=== PATIENT | male | born 1945 | race Caucasian/White ===

== ENCOUNTER 2024-07-27 23:42 | Inpatient (IN) | payer OTHER, MEDICAID ==
[~2024-07-27] VITALS: Ht 188 cm; Wt 92.5 kg
[2024-07-28] VITALS (10 sets, daily range): BP systolic 94–144; BP diastolic 51–87; PULSE 65–106; RESP 18–25; TEMP 98.1; O2SAT 91–100
[2024-07-28 00:19] LABS: Base Excess 3.7 mmol/L (-2.0-3.0)
[2024-07-28] MEDS: SODIUM CHLORIDE 0.9% 1,000 ML IV ONE ×2 (00:30→01:26)
[2024-07-28] MEDS: CEFEPIME 2GM/50ML NS 50 ML IV ONE (00:30)
[2024-07-28] MEDS: ONDANSETRON HCL 4 MG/2 ML VIAL IV ONE (00:35)
[2024-07-28 00:58] LABS: Basophils # (auto) 0 10 ^3/uL (0-0.2); Eosinophils # (auto) 0.1 10 ^3/uL (0-0.8); Eosinophils % (auto) 0.8 % (0.0-7.0); Hematocrit 37.8 % (41.0-53.0); Hemoglobin 12.8 g/dL (13.5-17.5); Lymphocytes # (auto) 0.4 10 ^3/uL (0.4-5.4); Mean Corpuscular Hemoglobin 34.6 pg (28.0-32.0); Mean Corpuscular Volume 101.7 fL (80.0-100.0); Monocytes # (auto) 0.5 10 ^3/uL (0-1.3); Monocytes % (auto) 2.8 % (0.0-12.0); Neutrophils # (auto) 17.2 10 ^3/uL (1.6-8.6); Neutrophils % (auto) 94.4 % (37.0-80.0); Platelet Count (auto) 211 10^3/uL (140-450); Red Blood Cells 3.71 10^6/uL (4.5-5.90); White Blood Cell 18.2 10^3/uL (4.4-10.8)
[2024-07-28 01:10] LABS: Alanine Aminotransferase 12 U/L (7-40); Albumin 4.1 g/dL (3.2-4.8); Alkaline Phosphatase 82 U/L (46-116); Anion Gap 3 (5-15); Aspartate Aminotransferase 19 U/L (13-40); BUN/Creatinine Ratio 18.4 (10.0-20.0); Bilirubin, Total 0.8 mg/dL (0.2-1.0); Blood Urea Nitrogen 23 mg/dL (9-23); Calcium 9.5 mg/dL (8.7-10.4); Carbon Dioxide 31 mmol/L (20-31); Chloride 104 mmol/L (98-107); Glucose 126 mg/dL (74-106); Potassium 3.9 mmol/L (3.5-5.1); Sodium 138 mmol/L (136-145); Total Protein 7.3 g/dL (5.7-8.2)
[2024-07-28 04:21] LABS: Urine Clarity Clear (Clear); Urine Color LIGHT YELLOW (Yellow); Urine Protein, UAD Negative (Negative); Urine Specific Gravity 1.012 (1.001-1.035); Urine Urobilinogen Normal (Negative); Urine pH 6.5 (5.0-9.0)
[2024-07-28 04:22] LABS: Urine Blood Trace /uL (Negative)
[2024-07-28 05:17] LABS: Urine Bacteria Rare /hpf (None Seen); Urine Mucus Rare (None Seen); Urine WBC 0-3 /hpf (0 - 3)
[2024-07-28 06:52] LABS: Base Excess 1.9 mmol/L (-2.0-3.0)
[2024-07-28] MEDS ORDERED: ACETAMINOPHEN 325 MG TAB PO PRN (07:00)
[2024-07-28] MEDS ORDERED: DOCUSATE SOD 100 MG CAP PO PRN (07:00)
[2024-07-28] MEDS ORDERED: ONDANSETRON HCL 4 MG/2 ML VIAL IV PRN (07:00)
[2024-07-28] MEDS ORDERED: HYDROcodone-ACET 5/325MG TAB PO PRN (07:00)
[2024-07-28] MEDS: SODIUM CHLORIDE 0.9% 1,000 ML IV SCH (07:24)
[2024-07-28] MEDS: methylPREDNISolone SOD SUCC 125 MG/2 ML VL IV ONE (07:34)
[2024-07-28] MEDS ORDERED: MORPHINE SULFATE INJ 2 MG/ml SYRG IV PRN (07:45)
[2024-07-28] MEDS ORDERED: NITROGLYCERIN 0.4 MG SL TAB SL PRN (07:45)
[2024-07-28] MEDS ORDERED: VANCOMYCIN PER PHARMACY 0 MG IV SCH (08:00)
[2024-07-28] MEDS: FAMOTIDINE (10MG/ML) 2ML VL IV SCH (08:10)
[2024-07-28] MEDS: VANCOMYCIN 1GM/200ML PREMIX 200 ML IV SCH (08:22)
[2024-07-28 08:44] LABS: Alanine Aminotransferase 13 U/L (7-40); Albumin 3.8 g/dL (3.2-4.8); Alkaline Phosphatase 68 U/L (46-116); Anion Gap 4 (5-15); Aspartate Aminotransferase 17 U/L (13-40); BUN/Creatinine Ratio 19.4 (10.0-20.0); Blood Urea Nitrogen 25 mg/dL (9-23); Calcium 9.3 mg/dL (8.7-10.4); Carbon Dioxide 31 mmol/L (20-31); Chloride 104 mmol/L (98-107); Glucose 126 mg/dL (74-106); Potassium 5.2 mmol/L (3.5-5.1); Sodium 139 mmol/L (136-145)
[2024-07-28 08:45] LABS: Total Protein 6.8 g/dL (5.7-8.2)
[2024-07-28 08:59] LABS: Basophils # (auto) 0 10 ^3/uL (0-0.2); Basophils % (auto) 0.1 % (0.0-2.0); Eosinophils # (auto) 0 10 ^3/uL (0-0.8); Eosinophils % (auto) 0.2 % (0.0-7.0); Hematocrit 35.7 % (41.0-53.0); Hemoglobin 11.7 g/dL (13.5-17.5); Lymphocytes # (auto) 0.6 10 ^3/uL (0.4-5.4); Lymphocytes % (auto) 2.9 % (10.0-50.0); Mean Corpuscular Hemoglobin 33.3 pg (28.0-32.0); Mean Corpuscular Hgb Conc. 32.7 g/dL (32.0-36.0); Mean Corpuscular Volume 101.9 fL (80.0-100.0); Monocytes # (auto) 1.1 10 ^3/uL (0-1.3); Neutrophils # (auto) 20.4 10 ^3/uL (1.6-8.6); Neutrophils % (auto) 91.8 % (37.0-80.0); Platelet Count (auto) 204 10^3/uL (140-450); Red Cell Distribution Width 17.6 % (11.8-14.3); White Blood Cell 22.2 10^3/uL (4.4-10.8)
[2024-07-28] MEDS: ASPirin 81 mg TAB PO SCH (10:00)
[2024-07-28] MEDS ORDERED: FAMOTIDINE (10MG/ML) 2ML VL IV SCH (10:00)
[2024-07-28] MEDS: cefTRIAXone 1GM/50ML D5W 50 ML IV SCH (10:24)
[2024-07-28] MEDS: methylPREDNISolone SOD SUCC 40 MG/ML VL IV SCH (14:17)
[2024-07-28] MEDS: VANCOMYCIN 750mg/150ml 150 ML IV SCH (21:25)
[2024-07-28] MEDS: ATORVASTATIN 20 MG TAB PO SCH (21:42)
[2024-07-29] VITALS (22 sets, daily range): BP systolic 100–144; BP diastolic 61–88; PULSE 73–101; RESP 16–20; TEMP 96.1–98.1; O2SAT 80–99
[2024-07-29] MEDS: ALBUTEROL SULF 2.5 MG/0.5ML(0.5%) NEB SOLN NEB SCH (00:19)
[2024-07-29] MEDS: IPRATROPIUM BROM 0.5 MG/2.5ML INH SOL NEB SCH (00:19)
[2024-07-29] MEDS: LEVOTHYROXINE SODIUM 50 MCG TAB PO SCH (06:00)
[2024-07-29 07:19] LABS: Basophils # (auto) 0 10 ^3/uL (0-0.2); Basophils % (auto) 0.1 % (0.0-2.0); Eosinophils # (auto) 0 10 ^3/uL (0-0.8); Hematocrit 35.8 % (41.0-53.0); Hemoglobin 11.9 g/dL (13.5-17.5); Lymphocytes # (auto) 0.3 10 ^3/uL (0.4-5.4); Lymphocytes % (auto) 1.8 % (10.0-50.0); Mean Corpuscular Hemoglobin 33.8 pg (28.0-32.0); Mean Corpuscular Hgb Conc. 33.3 g/dL (32.0-36.0); Mean Corpuscular Volume 101.4 fL (80.0-100.0); Monocytes # (auto) 0.3 10 ^3/uL (0-1.3); Monocytes % (auto) 2.1 % (0.0-12.0); Neutrophils # (auto) 15.3 10 ^3/uL (1.6-8.6); Nucleated Red Blood Cells % 0.1 %; Platelet Count (auto) 191 10^3/uL (140-450); Red Blood Cells 3.53 10^6/uL (4.5-5.90); Red Cell Distribution Width 17.3 % (11.8-14.3); White Blood Cell 15.9 10^3/uL (4.4-10.8)
[2024-07-29 07:39] LABS: Alanine Aminotransferase 14 U/L (7-40); Albumin 3.8 g/dL (3.2-4.8); Alkaline Phosphatase 63 U/L (46-116); Anion Gap 5 (5-15); Aspartate Aminotransferase 44 U/L (13-40); BUN/Creatinine Ratio 23.6 (10.0-20.0); Bilirubin, Total 0.6 mg/dL (0.2-1.0); Blood Urea Nitrogen 26 mg/dL (9-23); Calcium 9.5 mg/dL (8.7-10.4); Carbon Dioxide 28 mmol/L (20-31); Chloride 105 mmol/L (98-107); Glucose 137 mg/dL (74-106); Potassium 4.1 mmol/L (3.5-5.1); Sodium 138 mmol/L (136-145)
[2024-07-29 07:40] LABS: Total Protein 6.9 g/dL (5.7-8.2)
[2024-07-29] MEDS ORDERED: GABA-1308 GT (10:19)
[2024-07-29] MEDS ORDERED: MIDO5TAB22 GT (10:19)
[2024-07-29] MEDS ORDERED: POTA-220 GT (10:19)
[2024-07-29] MEDS ORDERED: FLUD0.1T2 GT (10:19)
[2024-07-29] MEDS ORDERED: LORA-622 PO (10:19)
[2024-07-29] MEDS ORDERED: ACET-1341 GT (10:19)
[2024-07-29] MEDS: GABAPENTIN 100 MG CAP GT SCH (22:46)
[2024-07-30] VITALS (14 sets, daily range): BP systolic 99–132; BP diastolic 58–86; PULSE 68–80; RESP 17–20; TEMP 97.5–98.7; O2SAT 92–98
[2024-07-30 07:52] LABS: Eosinophils # (auto) 0 10 ^3/uL (0-0.8); Lymphocytes # (auto) 0.3 10 ^3/uL (0.4-5.4); Mean Corpuscular Volume 104.5 fL (80.0-100.0); Monocytes # (auto) 0.4 10 ^3/uL (0-1.3); Nucleated Red Blood Cells % 0.1 %; Red Cell Distribution Width 18.3 % (11.8-14.3)
[2024-07-30] MEDS: ACETAMINOPHEN 650 mg PER 20.3 mL UD GT PRN (07:52)
[2024-07-30 07:54] LABS: Basophils # (auto) 0 10 ^3/uL (0-0.2); Basophils % (auto) 0.2 % (0.0-2.0); Hematocrit 35.2 % (41.0-53.0); Hemoglobin 11.6 g/dL (13.5-17.5); Lymphocytes % (auto) 1.3 % (10.0-50.0); Mean Corpuscular Hemoglobin 34.3 pg (28.0-32.0); Mean Corpuscular Hgb Conc. 32.8 g/dL (32.0-36.0); Monocytes % (auto) 2.2 % (0.0-12.0); Neutrophils # (auto) 18.2 10 ^3/uL (1.6-8.6); Neutrophils % (auto) 96.3 % (37.0-80.0); Platelet Count (auto) 211 10^3/uL (140-450); Red Blood Cells 3.37 10^6/uL (4.5-5.90); White Blood Cell 18.9 10^3/uL (4.4-10.8)
[2024-07-30 18:44] LABS: Urine Bacteria FEW /hpf (None Seen); Urine Blood Negative /uL (Negative); Urine Clarity Clear (Clear); Urine Color Yellow (Yellow); Urine Mucus FEW (None Seen); Urine Protein, UAD Negative (Negative); Urine Specific Gravity 1.022 (1.001-1.035); Urine Urobilinogen Normal (Negative); Urine WBC 1 /hpf (0 - 3); Urine pH 5.5 (5.0-9.0)
[2024-07-31] VITALS (17 sets, daily range): BP systolic 116–141; BP diastolic 73–88; PULSE 64–102; RESP 14–20; TEMP 97.3–99.1; O2SAT 92–99
[2024-07-31 07:04] LABS: Alanine Aminotransferase 19 U/L (7-40); Alkaline Phosphatase 59 U/L (46-116); Anion Gap 5 (5-15); BUN/Creatinine Ratio 27.7 (10.0-20.0); Blood Urea Nitrogen 26 mg/dL (9-23); Calcium 8.9 mg/dL (8.7-10.4); Carbon Dioxide 29 mmol/L (20-31); Chloride 105 mmol/L (98-107); Glucose 151 mg/dL (74-106); Hematocrit 32.9 % (41.0-53.0); Hemoglobin 10.8 g/dL (13.5-17.5); Mean Corpuscular Hemoglobin 33.7 pg (28.0-32.0); Mean Corpuscular Hgb Conc. 32.7 g/dL (32.0-36.0); Mean Corpuscular Volume 103.1 fL (80.0-100.0); Platelet Count (auto) 193 10^3/uL (140-450); Potassium 4.4 mmol/L (3.5-5.1); Red Blood Cells 3.19 10^6/uL (4.5-5.90); Red Cell Distribution Width 17.4 % (11.8-14.3); Sodium 139 mmol/L (136-145); White Blood Cell 14.3 10^3/uL (4.4-10.8)
[2024-07-31 07:05] LABS: Albumin 3.3 g/dL (3.2-4.8); Bilirubin, Total 0.3 mg/dL (0.2-1.0)
[2024-07-31 07:07] LABS: Aspartate Aminotransferase 36 U/L (13-40); Band Neutrophils % (manual) 0; Basophils % (manual) 0 (0.0-2.0); Blast Cells 0; Eosinophils % (manual) 0 (0-7); Metamyelocytes % 0; Myelocytes % 0; Promyelocytes % 0; Reactive Lymphocytes 0
[2024-07-31 09:28] LABS: Lymphocytes % (manual) 4 (10.0-50.0); Monocytes % (manual) 3 (0-12); Platelet Estimate Adequate
[2024-08-01 07:52] LABS: Hematocrit 36.2 % (41.0-53.0); Hemoglobin 11.7 g/dL (13.5-17.5); Mean Corpuscular Hemoglobin 32.7 pg (28.0-32.0); Mean Corpuscular Hgb Conc. 32.2 g/dL (32.0-36.0); Mean Corpuscular Volume 101.5 fL (80.0-100.0); Platelet Count (auto) 209 10^3/uL (140-450); Red Blood Cells 3.57 10^6/uL (4.5-5.90); Red Cell Distribution Width 17.6 % (11.8-14.3); White Blood Cell 17.7 10^3/uL (4.4-10.8)
[2024-08-01 07:56] LABS: Band Neutrophils % (manual) 0; Basophils % (manual) 0 (0.0-2.0); Blast Cells 0; Eosinophils % (manual) 0 (0-7); Metamyelocytes % 0; Myelocytes % 0; Promyelocytes % 0; Reactive Lymphocytes 0
[2024-08-01 08:00] VITALS: PULSE 59
[2024-08-01 10:56] LABS: Lymphocytes % (manual) 1 (10.0-50.0); Monocytes % (manual) 6 (0-12)
[2024-08-01 10:57] LABS: Platelet Estimate Adequate
[2024-08-01 11:27] VITALS: PULSE 79; RESP 18; O2SAT 90
[2024-08-01] MEDS: predniSONE 20 MG TAB PO SCH (11:32)
[2024-08-01 11:33] VITALS: PULSE 74; RESP 16; O2SAT 95
[2024-08-01 13:00] VITALS: BP 146/99; PULSE 81; RESP 17; TEMP 97.1; O2SAT 98
[2024-08-01] MEDS ORDERED: ASPI-325 PO (15:26)
[2024-08-01] MEDS ORDERED: PRED20TA2 PO (15:26)
[2024-08-01] MEDS ORDERED: CEFP200T15 PO (15:26)
[2024-08-01] MEDS ORDERED: LEVO125C3 PO (15:26)
[2024-08-01] MEDS ORDERED: ATOR20TA50 PO (15:26)
[2024-08-01] MEDS ORDERED: DOXY100C79 PO (15:26)
== END 2024-08-01 18:09 | disposition home or self-care (01) | DRG 871 ==
LOC: EDBD 23:42 → ER 23:42 → TELE 07-28 07:37 → TELE-CENTR 07-28 23:00
PROVIDERS: ADMIT Nurse Practitioner Family; ATTEND Student in an Organized Health Care Education/Training Program
PROC: 5A09357 Assistance with Respiratory Ventilation, Less than 24 Consecutive Hours, Continuous Positive Airway Pressure (ICD-10-PCS; principal; 2024-07-28)
DX: A41.9 Sepsis, unspecified organism (principal); J15.69 Pneumonia due to other Gram-negative bacteria; J69.0 Pneumonitis due to inhalation of food and vomit; J96.21 Acute and chronic respiratory failure with hypoxia; R65.21 Severe sepsis with septic shock; J44.1 Chronic obstructive pulmonary disease with (acute) exacerbation; J44.0 Chronic obstructive pulmonary disease with (acute) lower respiratory infection; J98.11 Atelectasis; E87.5 Hyperkalemia; I10 Essential (primary) hypertension; E78.5 Hyperlipidemia, unspecified; R73.9 Hyperglycemia, unspecified; E66.9 Obesity, unspecified; D53.9 Nutritional anemia, unspecified; I95.9 Hypotension, unspecified; E63.9 Nutritional deficiency, unspecified; E03.9 Hypothyroidism, unspecified; Z87.11 Personal history of peptic ulcer disease; Z68.34 Body mass index [BMI] 34.0-34.9, adult; Z99.81 Dependence on supplemental oxygen; Z93.1 Gastrostomy status; Z92.21 Personal history of antineoplastic chemotherapy; Z85.819 Personal history of malignant neoplasm of unspecified site of lip, oral cavity, and pharynx; Z92.3 Personal history of irradiation; Z79.899 Other long term (current) drug therapy
CPT/HCPCS: 36415; 36600; 71045; 71250; 80053; 80202; 81001; 82565; 82805; 82962; 83605; 83880; 84443; 84484; 85007; 85025; 85027; 87040; 92507; 93005; 94640; 94660; 97110; 97116; 97163; 97530; 99291; G0378; J0692; J2405; J3490

== ENCOUNTER 2024-08-17 12:31 | Inpatient (IN) | payer OTHER, MEDICAID ==
[~2024-08-17] VITALS: Ht 185.4 cm; Wt 93.0 kg
[~2024-08-17 12:31] MED LIST: ACET-1341 GT; ASPI-325 PO; ATOR20TA50 PO; CEFP200T15 PO; DOXY100C79 PO; FLUD0.1T2 GT; GABA-1308 GT; LEVO125C3 PO; LORA-622 PO; MIDO5TAB22 GT; POTA-220 GT; PRED20TA2 PO
--- NOTE | 2024-08-17 13:14 | ED.PDOC ---
History of Present Illness HPI Comments 78-year-old male brought by paramedics from home because of shortness a breath for the past few days progressively getting worse. He was here few weeks ago for which he was diagnosed with aspiration pneumonia was given antibiotics. He states that his antibiotics course was finished a week ago. Ever since he stopped the antibiotics he has been having increasing shortness a breath. Denies any other symptoms. Chief Complaint: Shortness of Breath Time Seen by MD: 13:07 Primary Care Provider: UNKNOWN NAME Reviewed Notes: Nurses Notes, Medications, Allergies Allergies: Coded Allergies: Aspirin (Verified Allergy, Unknown, 08/17/24) Home Meds Active Scripts Doxycycline (Monohydrate) (Doxycycline) 100 Mg Cap, 100 MG PO BID for 3 Days, #6 CAP Prov:CELINE OLIVEROS MD 08/01/24 Cefpodoxime Proxetil (Cefpodoxime Proxetil) 200 Mg Tab, 200 MG PO BID for 3 Days, #6 TAB Prov:CELINE OLIVEROS MD 08/01/24 Prednisone (Prednisone) 20 Mg Tab, 40 MG PO DAILY for 12 Days, #24 TAB take 2 tablets daily in case of exacerbation Prov:CELINE OLIVEROS MD 08/01/24 Levothyroxine Sodium (Levothyroxine Sodium) 125 Mcg Cap, 125 MCG PO DAILY for 30 Days, #30 CAP Prov:CELINE OLIVEROS MD 08/01/24 Atorvastatin Calcium (ATORVASTATIN CALCIUM) 20 Mg Tab, 10 MG PO HS for 30 Days, #15 TAB Prov:CELINE OLIVEROS MD 08/01/24 Aspirin (Aspirin Low Dose) 81 Mg Tab, 81 MG PO DAILY for 30 Days, #30 TAB Prov:CELINE OLIVEROS MD 08/01/24 Reported Medications Potassium Chloride (Klor-Con M20) 20 Meq Tab, 20 MEQ GT DAILY, TAB 07/29/24 Loratadine (Claritin) 10 Mg Tab, 1 TAB PO DAILY, #30 TAB 5 Refills 07/29/24 Acetaminophen (EQ ACETAMINOPHEN EXTRA ST) 500 Mg Tab, 500 MG GT HS, TAB 07/29/24 Gabapentin (Gabapentin) 100 Mg Cap, 100 MG GT TID 07/29/24 Fludrocortisone Acetate (Fludrocortisone Acetate) 0.1 Mg Tab, 0.1 MG GT BID, MG 07/29/24 Midodrine HCl (Midodrine Hydrochloride) 5 Mg Tab, 5 MG GT PRN, TAB 07/29/24 Information Source: Patient, Emergency Med Personnel Mode of Arrival: EMS Severity: Moderate Timing: Days Duration: Since onset Past Medical History PAST MEDICAL HISTORY: Cancer, COPD, HTN, Thyroid Surgical History: Denies all surgeries Family History Family History: Reviewed,noncontributory to illness Social History Smoker: Non-Smoker Alcohol: Denies ETOH Use Drugs: Denies Drug Use Lives In: Home Constitutional: denies: chills, diaphoresis, fatigue, fever, malaise, sweats, weakness, others EENTM: denies: blurred vision, double vision, ear bleeding, ear discharge, ear drainage, ear pain, ear ringing, eye pain, eye redness, hearing loss, mouth pain, mouth swelling, nasal discharge, nose bleeding, nose congestion, nose pain, photophobia, tearing, throat pain, throat swelling, voice changes, others Respiratory: reports: shortness of breath; denies: cough, hemoptysis, orthopnea, SOB at rest, SOB with excertion, stridor, wheezing, others Cardiovascular: denies: chest pain, dizzy spells, diaphoresis, Dyspnea on exertion, edema, irregular heart beat, left arm pain, lightheadedness, palpitations, PND, syncope, others Gastrointestinal: denies: abdomen distended, abdominal pain, blood streaked bowels, constipated, diarrhea, dysphagia, difficulty swallowing, hematemesis, melena, nausea, poor appetite, poor fluid intake, rectal bleeding, rectal pain, vomiting, others Genitourinary: denies: burning, dysuria, flank pain, frequency, hematuria, incontinence, penile discharge, penile sore, pain, testicle pain, testicle swelling, urgency, others Neurological: denies: dizziness, fainting, headache, left sided numbness, left sided weakness, numbness, paresthesia, pre-existing deficit, right sided numbness, right sided weakness, seizure, speech problems, tingling, tremors, weakness, others Musculoskeletal: denies: back pain, gout, joint pain, joint swelling, muscle pain, muscle stiffness, neck pain, others Integumetry: denies: bruises, change in color, change in hair/nails, dryness, laceration, lesions, lumps, rash, wounds, others Allergic/Immunocompromised: denies: Difficulty Healing, Frequent Infections, Hives, Itching, others Hematologic/Lymphatic: denies: anemia, blood clots, easy bleeding, easy bruising, swollen glands, others Endocrine: denies: excessive hunger, excessive sweating, excessive thirst, excessive urination, flushing, intolerance to cold, intolerance to heat, unexplained weight gain, unexplained weight loss, others Psychiatric: denies: anxiety, bipolar disorder, depression, hopeless, panic disorder, schizophrenia, sleepless, suicidal, others Physical Exam General Appearance: Moderate Distress HEENT: Normal ENT Inspection, Pharynx Normal, TMs Normal Neck: Full Range of Motion, Non-Tender, Normal, Normal Inspection Respiratory: Other (Coarse breath sounds) Cardiovascular: No Edema, No JVD, No Murmur, No Gallop, Normal Peripheral Pulses, Regular Rate/Rhythm Breast Exam: Deferred Gastrointestinal: No Organomegaly, Non Tender, No Pulsatile Mass, Normal Bowel Sounds, Soft Genitalia: Deferred Pelvic: Deferred Rectal: Deferred Extremities: No calf tenderness, Normal capillary refill, Normal inspection, Normal range of motion, Non-tender, No pedal edema Musculoskeletal : Apperance: Normal Neurologic: Alert, tree and shrub technician II-XII nml as Tested, No Motor Deficits, Normal Affect, Normal Mood, No Sensory Deficits Cerebellar Function: NOT DONE Reflexes: NOT DONE Skin: Dry, Normal Color, Warm Peripheral Pulses: 3+ Radial (R), 3+ Radial (L) Lymphatic: No Adenopathy Was a procedure done? Was a procedure done?: No Differential Dx Considerations may include: Pneumonia Electrolyte imbalance X-Ray, Labs, Meds, VS Vital Signs Date Time Temp Pulse Resp B/P (MAP) Pulse Ox O2 Delivery O2 Flow Rate FiO2 08/17/24 12:40 98.6 64 14 124/83 (97) 93 08/17/24 12:37 61 Lab Test 08/17/24 17:02 08/17/24 14:28 08/17/24 13:24 Range/Units Troponin I High Sensitivity Pending 16 16 </=54 ng/L White Blood Count 12.1 H 4.4-10.8 10^3/uL Red Blood Count 3.69 L 4.5-5.90 10^6/uL Hemoglobin 13.0 L 13.5-17.5 g/dL Hematocrit 38.3 L 41.0-53.0 % Mean Corpuscular Volume 103.8 H 80.0-100.0 fL Mean Corpuscular Hemoglobin 35.1 H 28.0-32.0 pg Mean Corpuscular Hemoglobin Concent 33.8 32.0-36.0 g/dL Red Cell Distribution Width 18.7 H 11.8-14.3 % Platelet Count 163 140-450 10^3/uL Mean Platelet Volume 8.0 6.9-10.8 fL Neutrophils (%) (Auto) 88.6 H 37.0-80.0 % Lymphocytes (%) (Auto) 5.1 L 10.0-50.0 % Monocytes (%) (Auto) 2.8 0.0-12.0 % Eosinophils (%) (Auto) 3.0 0.0-7.0 % Basophils (%) (Auto) 0.5 0.0-2.0 % Neutrophils # (Auto) 10.7 H 1.6-8.6 10 ^3/uL Lymphocytes # (Auto) 0.6 0.4-5.4 10 ^3/uL Monocytes # (Auto) 0.3 0-1.3 10 ^3/uL Eosinophils # (Auto) 0.4 0-0.8 10 ^3/uL Basophils # (Auto) 0.1 0-0.2 10 ^3/uL Nucleated Red Blood Cells 0.1 % Prothrombin Time 10.9 9.3-11.8 sec Prothrombin Time INR 1.03 0.9-1.15 Activated Partial Thromboplast Time 31.1 24.5-34.5 SEC Sodium Level 135 L 136-145 mmol/L Potassium Level 4.4 3.5-5.1 mmol/L Chloride Level 99 98-107 mmol/L Carbon Dioxide Level 33 H 20-31 mmol/L Anion Gap 3 L 5-15 Blood Urea Nitrogen 19 9-23 mg/dL Creatinine 1.09 0.700-1.30 mg/dL Glomerular Filtration Rate Calc 69 >90 mL/min BUN/Creatinine Ratio 17.4 10.0-20.0 Serum Glucose 87 74-106 mg/dL Calcium Level 9.2 8.7-10.4 mg/dL Magnesium Level 2.2 1.6-2.6 mg/dL Total Bilirubin 1.0 0.2-1.0 mg/dL Aspartate Amino Transferase (AST) 19 13-40 U/L Alanine Aminotransferase (ALT) 18 7-40 U/L Alkaline Phosphatase 72 46-116 U/L B-Type Natriuretic Peptide 70.75 0-100 pg/mL Total Protein 5.9 5.7-8.2 g/dL Albumin 3.4 3.2-4.8 g/dL Patient alert. Came in for shortness of breath. Was discharged from this hospital recently, History of aspiration pneumonia. WBC elevated. Currently not on any antibiotics. BNP within normal limits. Chest x-ray reviewed does show possible pneumonitis. He is on oxygen. Was given Rocephin. Was given clindamycin. Reviewed his previous visit. Explained to the patient. EKG reviewed does not show any acute changes. No leg swelling. No chest pain. No increase in respiratory rate. No discoloration. [employer] approved inpatient admission [id number]. EXAM: XY CHEST PORTABLE Indication:SOB Technique: Single frontal view of the chest was obtained Comparison: XY CHEST PORTABLE on DOS: 07/28/24 FINDINGS: Lines and Tubes: None Lungs: Diffuse interstitial opacities. Pleura: No effusion. No pneumothorax. Cardiomediastinal contours: Unremarkable Bones: No acute osseous abnormality. IMPRESSION: Diffuse interstitial opacities suggestive of atypical infection or pulmonary edema. Time of 1ST Reevaluation: 14:22 Reevaluation 1ST: Unchanged Patient Education/Counseling: Diagnosis, Treatment, Prognosis Family Education/Counseling: No Family Present Departure 1 Departure Time of Disposition: 14:24 Impression: Primary Impression: COPD with acute exacerbation Additional Impression: Pneumonitis Disposition: 01 HOME / SELF CARE / HOMELESS Condition: Good Discharged With: Self Critical Care Note Critical Care Time?: No Stability Stability form required: No Heart Score Heart Score: Heart Score Response (Comments) Value History Slightly Suspicious 0 EKG Normal 0 Age >65 2 Risk Factors 1 or 2 risk factors 1 Troponin Normal limit 0 Total 3 I personally scribed for RAHEEM GABRIEL MD ([email or web address]) on 08/17/24 at 15:00. Electronically submitted by Kathy Marsh ([facility]). RAHEEM GABRIEL MD Aug 17, 2024 13:14
--- NOTE | 2024-08-17 13:29 | DVH ---
EXAM: XY CHEST PORTABLE Indication:SOB Technique: Single frontal view of the chest was obtained Comparison: XY CHEST PORTABLE on DOS: 07/28/24 FINDINGS: Lines and Tubes: None Lungs: Diffuse interstitial opacities. Pleura: No effusion. No pneumothorax. Cardiomediastinal contours: Unremarkable Bones: No acute osseous abnormality. IMPRESSION: Diffuse interstitial opacities suggestive of atypical infection or pulmonary edema.
[2024-08-17 14:03] LABS: Basophils # (auto) 0.1 10 ^3/uL (0-0.2); Eosinophils # (auto) 0.4 10 ^3/uL (0-0.8)
[2024-08-17 14:05] LABS: Basophils % (auto) 0.5 % (0.0-2.0); Hematocrit 38.3 % (41.0-53.0); Lymphocytes # (auto) 0.6 10 ^3/uL (0.4-5.4); Lymphocytes % (auto) 5.1 % (10.0-50.0); Mean Corpuscular Hemoglobin 35.1 pg (28.0-32.0); Mean Corpuscular Hgb Conc. 33.8 g/dL (32.0-36.0); Mean Corpuscular Volume 103.8 fL (80.0-100.0); Monocytes # (auto) 0.3 10 ^3/uL (0-1.3); Monocytes % (auto) 2.8 % (0.0-12.0); Neutrophils # (auto) 10.7 10 ^3/uL (1.6-8.6); Neutrophils % (auto) 88.6 % (37.0-80.0); Nucleated Red Blood Cells % 0.1 %; Platelet Count (auto) 163 10^3/uL (140-450); Red Blood Cells 3.69 10^6/uL (4.5-5.90); Red Cell Distribution Width 18.7 % (11.8-14.3); White Blood Cell 12.1 10^3/uL (4.4-10.8)
[2024-08-17 14:17] LABS: Alanine Aminotransferase 18 U/L (7-40); Alkaline Phosphatase 72 U/L (46-116); Anion Gap 3 (5-15); Aspartate Aminotransferase 19 U/L (13-40); BUN/Creatinine Ratio 17.4 (10.0-20.0); Blood Urea Nitrogen 19 mg/dL (9-23); Calcium 9.2 mg/dL (8.7-10.4); Carbon Dioxide 33 mmol/L (20-31); Chloride 99 mmol/L (98-107); Glucose 87 mg/dL (74-106); Magnesium 2.2 mg/dL (1.6-2.6); Potassium 4.4 mmol/L (3.5-5.1); Sodium 135 mmol/L (136-145)
[2024-08-17 14:18] LABS: Albumin 3.4 g/dL (3.2-4.8); Total Protein 5.9 g/dL (5.7-8.2)
[2024-08-17 14:20] LABS: INR 1.03 (0.9-1.15); Partial Thromboplastin Time 31.1 SEC (24.5-34.5); Prothrombin Time 10.9 sec (9.3-11.8)
[2024-08-17 17:40] VITALS: PULSE 125; RESP 20; O2SAT 95
[2024-08-17] MEDS ORDERED: ALBUTEROL SULF 2.5 MG/0.5ML(0.5%) NEB SOLN NEB PRN (18:45)
[2024-08-17] MEDS ORDERED: IPRATROPIUM BROM 0.5 MG/2.5ML INH SOL NEB PRN (18:45)
[2024-08-17] MEDS ORDERED: LEVO125T7 PO (18:58)
[2024-08-17 19:02] VITALS: BP 124/83; PULSE 64; RESP 18; O2SAT 94
--- NOTE | 2024-08-17 19:19 | DVHHP2 ---
History of Present Illness Reason for Visit: Shortness of breath History of Present Illness 78-year-old male brought in by paramedics from home due to shortness of breaths x3 days, progressively getting worse. Patient was here 3 weeks ago and diagnosed with aspiration pneumonia and was placed on antibiotics. Patient finishes antibiotics last week and since stopping he has continued having increased shortness of breath. Patient's SpO2 on EMS arrival was 87%, after 4 L nasal cannula, patient at 94% SpO2. Patient denies chest pain, headache, dizziness, diaphoresis, abdominal pain, no nausea, vomiting, fever, or chills endorsed by the patient. Patient was admitted for further evaluation medical management. Past Medical History Cancer, COPD, HTN, Thyroid Past Surgical History Denies Family History Reviewed noncontributory to the management of this case Smoke: No ALCOHOL: none Drugs: None Lives: with Family Review of Systems Constitutional: No: Fever, Chills, Sweats, Weakness, Malaise, Other Eyes: No: Pain, Vision change, Conjunctivae inflammation, Eyelid inflammation, Other, Redness ENT: No: Ear pain, Ear discharge, Nose pain, Nose discharge, Nose congestion, Mouth pain, Mouth swelling, Throat pain, Throat swelling, Other Respiratory: Shortness of breath, SOB with excertion; No: Cough, Dry, Wheezing, Hemoptysis, Pleuritic Pain, Sputum, Wheezing, Other Cardiovascular: No: Chest Pain, Palpitations, Orthopnea, Paroxysmal Noc. Dyspnea, Edema, Lt Headedness, Other Gastrointestinal: No: Nausea, Vomiting, Abdominal Pain, Diarrhea, Constipation, Melena, Hematochezia, Other Genitourinary: No Dysuria, No Frequency, No Incontinence, No Hematuria, No Retention, No Other Musculoskeletal: No: other, neck pain, shoulder pain, arm pain, back pain, hand pain, leg pain, foot pain Skin: No: Rash, Lesions, Jaundice, Bruising, Other Neurological: No: Weakness, Numbness, Incoordination, Change in speech, Confusion, Seizures, Other Allergies: Coded Allergies: Aspirin (Verified Allergy, Unknown, 08/17/24) Medications Current Medications Medications Dose Ordered Sig/Gaurav Route Start Time Stop Time Status Last Admin Dose Admin Ceftriaxone Sodium 50 ml @ 100 mls/hr DAILY@09 IV 08/18/24 09:00 UNV Clindamycin Phosphate 50 ml @ 50 mls/hr Q8HR IV 08/17/24 22:00 UNV Albuterol 2.5 mg Q4HPRN PRN NEB 08/17/24 18:45 UNV Ipratropium [place] 0.5 mg Q4HPRN PRN NEB 08/17/24 18:45 UNV Atorvastatin Calcium 10 mg HS PO 08/17/24 22:00 UNV Levothyroxine Sodium 125 mcg QAM@0600 PO 08/18/24 06:00 UNV Exam Vital Signs Vital Signs Date Time Temp Pulse Resp B/P (MAP) Pulse Ox O2 Delivery O2 Flow Rate FiO2 08/17/24 19:02 64 18 124/83 94 4.0 36 08/17/24 12:40 98.6 General Appearance: Alert, Oriented X3, Cooperative, No acute distress HEENT: Atraumatic, PERRLA, EOMI, Mucous membr. moist/pink Respiratory: Clear to auscultation, Normal air movement, Other (Diminished breath sounds) Cardiovascular: Regular rate, Normal S1, Normal S2, No murmurs Abdominal: Normal bowel sounds, Soft, No tenderness, No hepatospenomegaly, No masses Extremities: No clubbing, No cyanosis, No edema, Normal pulses, No tenderness/swelling Skin: No rashes, No breakdown, No significant lesion Neuro: Normal gait, Normal speech, Strength at 5/5 X4 ext, Normal tone, Sensation intact, Cranial nerves 3-12 NL, Reflexes 2+ Psych/Mental Status: Mental status NL, Mood NL Labs/Xrays Labs, imaging and ED notes reviewed Labs Test 08/17/24 17:02 08/17/24 13:24 Range/Units Troponin I High Sensitivity 14 </=54 ng/L White Blood Count 12.1 H 4.4-10.8 10^3/uL Red Blood Count 3.69 L 4.5-5.90 10^6/uL Hemoglobin 13.0 L 13.5-17.5 g/dL Hematocrit 38.3 L 41.0-53.0 % Mean Corpuscular Volume 103.8 H 80.0-100.0 fL Mean Corpuscular Hemoglobin 35.1 H 28.0-32.0 pg Mean Corpuscular Hemoglobin Concent 33.8 32.0-36.0 g/dL Red Cell Distribution Width 18.7 H 11.8-14.3 % Platelet Count 163 140-450 10^3/uL Mean Platelet Volume 8.0 6.9-10.8 fL Neutrophils (%) (Auto) 88.6 H 37.0-80.0 % Lymphocytes (%) (Auto) 5.1 L 10.0-50.0 % Monocytes (%) (Auto) 2.8 0.0-12.0 % Eosinophils (%) (Auto) 3.0 0.0-7.0 % Basophils (%) (Auto) 0.5 0.0-2.0 % Neutrophils # (Auto) 10.7 H 1.6-8.6 10 ^3/uL Lymphocytes # (Auto) 0.6 0.4-5.4 10 ^3/uL Monocytes # (Auto) 0.3 0-1.3 10 ^3/uL Eosinophils # (Auto) 0.4 0-0.8 10 ^3/uL Basophils # (Auto) 0.1 0-0.2 10 ^3/uL Nucleated Red Blood Cells 0.1 % Prothrombin Time 10.9 9.3-11.8 sec Prothrombin Time INR 1.03 0.9-1.15 Activated Partial Thromboplast Time 31.1 24.5-34.5 SEC Sodium Level 135 L 136-145 mmol/L Potassium Level 4.4 3.5-5.1 mmol/L Chloride Level 99 98-107 mmol/L Carbon Dioxide Level 33 H 20-31 mmol/L Anion Gap 3 L 5-15 Blood Urea Nitrogen 19 9-23 mg/dL Creatinine 1.09 0.700-1.30 mg/dL Glomerular Filtration Rate Calc 69 >90 mL/min BUN/Creatinine Ratio 17.4 10.0-20.0 Serum Glucose 87 74-106 mg/dL Calcium Level 9.2 8.7-10.4 mg/dL Magnesium Level 2.2 1.6-2.6 mg/dL Total Bilirubin 1.0 0.2-1.0 mg/dL Aspartate Amino Transferase (AST) 19 13-40 U/L Alanine Aminotransferase (ALT) 18 7-40 U/L Alkaline Phosphatase 72 46-116 U/L B-Type Natriuretic Peptide 70.75 0-100 pg/mL Total Protein 5.9 5.7-8.2 g/dL Albumin 3.4 3.2-4.8 g/dL Assessment/Plan Assessment/Plan COPD with exacerbation Admit medical/surgical Albuterol/ipratropium med nebs p.r.n. Tropes negative BNP 70.75 Acute hypoxic respiratory failure On 2 L nasal cannula Supplemental oxygen Titrate to keep SpO2 greater than 92% Pneumonia, (aspiration pneumonia on last admission) Started on antibiotics Follow up a.m. labs Send Sputum culture if productive Chronic Hypothyroidism Resume home meds Chronic hyperlipidemia Home meds FEN/PPX GI and VTE prophylaxis not indicated Cardiac diet Plan discussed with: Patient My Orders Orders - LILLIANA BIRMINGHAM Procedure Category Date Status Time Admit ADMIT 08/17/24 Transmitted 18:41 Code Status CODE 08/17/24 Transmitted 18:41 Vital Signs [facility] 08/17/24 In Process 18:41 Review Orders With [facility] 08/17/24 In Process Adm.Md 18:41 Notify Md Of Changes [facility] 08/17/24 In Process From Base 18:41 Advance Directive [facility] 08/17/24 In Process 18:41 Patient Condition ORDERS 08/17/24 Transmitted 18:41 Allergies [facility] 08/17/24 In Process 18:41 Ceftriaxone 1gm/50ml PHA 08/18/24 Logged D5w (Rocephin) 09:00 Clindamycin 300mg Iv PHA 08/17/24 Logged (Cleocin Iv) 22:00 Cardiac DIET 08/18/24 Transmitted Diet-2gna,Lofat,Lochol Breakfast Albuterol Medneb PHA 08/17/24 Logged (Ventolin Medneb) 18:45 Ipratropium Medneb PHA 08/17/24 Logged (Atrovent Medneb) 18:45 Atorvastatin (Lipitor) PHA 08/17/24 Logged 22:00 Levothyroxine Tablet PHA 08/18/24 Logged (Synthroid Tablet) 06:00 Date of Service: Aug 17, 2024 Billing Provider: LILLIANA BIRMINGHAM Common Visit Codes: [id number] INP/OBS CARE (HIGH) LILLIANA BIRMINGHAM Aug 17, 2024 19:19
[2024-08-17] MEDS: CLINDAMYCIN 300MG IV 50 ML IV ONE (19:34)
[2024-08-17 19:45] VITALS: PULSE 88; RESP 17; O2SAT 94
[2024-08-17 20:02] VITALS: O2SAT 95
[2024-08-17] MEDS: cefTRIAXone 1GM/50ML D5W 50 ML IV ONE (21:23)
[2024-08-17 22:29] VITALS: BP 145/89; PULSE 96; RESP 18; TEMP 99.1; O2SAT 95
[2024-08-17] MEDS: CLINDAMYCIN 300MG IV 50 ML IV SCH (23:01)
[2024-08-17] MEDS: ATORVASTATIN 20 MG TAB PO SCH (23:03)
[2024-08-17 23:35] LABS: Urine Bacteria None Seen /hpf (None Seen)
[2024-08-17 23:52] LABS: Urine Blood TRACE /uL (Negative); Urine Clarity Clear (Clear); Urine Color Yellow (Yellow); Urine Protein, UAD TRACE (Negative); Urine Specific Gravity 1.014 (1.001-1.035); Urine Urobilinogen Normal (Negative); Urine WBC 1 /hpf (0 - 3)
[2024-08-18] VITALS (13 sets, daily range): BP systolic 87–133; BP diastolic 50–84; PULSE 57–80; RESP 15–20; TEMP 97.6–98.4; O2SAT 93–97
[2024-08-18] MEDS: LEVOTHYROXINE SODIUM 50 MCG TAB PO SCH (05:31)
[2024-08-18] MEDS: cefTRIAXone 1GM/50ML D5W 50 ML IV SCH (08:42)
--- NOTE | 2024-08-18 09:50 | DVHPNRES ---
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 Patient reported having some short of breath. Patient's reported that he was desaturating to SpO2 70 percent even after increasing home oxygen [place] O2 to 8 liter/minute. Chest pain, fever, acute joint pain or swelling, dysarthria. Patient was brought to the ER by EMS. Patient's SpO2 was 87% with NC O2 4 liter/minute on arrival. Initial lab workup revealed leukocytosis WBC 12.1, chest x-ray revealed bilateral lung opacity the mid and lower zone. 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 Patient reports feeling some short of breath with coughing and making greenish sputum Cardiovascular- deny acute chest pain or palpitation Gastrointestinal- denies any rectal bleeding, nausea or vomiting Musculoskeletal-denies acute joint swelling or tenderness or redness Neurological- denies acute dysarthria, dysphagia, change in vision Psychiatry- denies depression or SI or HI Skin- denies acute rash or purpura Patient was seen today for clinical evaluation. Labs and chart reviewed. Patient on Oxymizer 8 L per minute to maintain SpO2> 90%. Initial lab workup revealed leukocytosis, CXR revealed bilateral lower lung opacity. Patient reported cough with greenish sputum, feeling some short of breath. Patient has bilateral lung crackles on auscultation. Ordered blood culture, sputum culture, MRSA screening, we will change antibiotic to meropenem and vancomycin. Objective vital signs Vital Sign Date Time Temp Pulse Resp B/P (MAP) Pulse Ox O2 Delivery O2 Flow Rate FiO2 08/18/24 05:00 97.6 78 18 94/60 (71) 93 97.6 11/14/24 22:29 Oxymizer 8 N/A Total Intake and Output 08/17/24 08/17/24 08/18/24 15:00 23:00 07:00 Intake Total 240 ml Output Total 200 ml Balance 40 ml medications Current Medications Medications Dose Ordered Sig/Gaurav Route Start Time Stop Time Status Last Admin Dose Admin Ceftriaxone Sodium 50 ml @ 100 mls/hr DAILY@09 IV 08/18/24 09:00 08/18/24 08:42 100 MLS/HR Clindamycin Phosphate 50 ml @ 50 mls/hr Q8HR IV 08/17/24 22:00 08/18/24 05:30 50 MLS/HR Albuterol 2.5 mg Q4HPRN PRN NEB 08/17/24 18:45 Ipratropium [place] 0.5 mg Q4HPRN PRN NEB 08/17/24 18:45 Atorvastatin Calcium 10 mg HS PO 08/17/24 22:00 08/17/24 23:03 10 MG Levothyroxine Sodium 125 mcg QAM@0600 PO 08/18/24 06:00 08/18/24 05:31 125 MCG Examination General examination- awake, alert, alert and cooperative HEENT- PEERLA, no acute nasal discharge Cardiovascular- S1-S2 audible, rate and rhythm regular, no murmur Respiratory- ++ bilateral lung crackles Gastrointestinal-feeding tube present, nontender, bowel sound+. Nondistended Musculoskeletal-no acute joint swelling or tenderness or redness# Lower extremity- no leg edema Neurological- cranial nerves intact, no acute dysarthria or dysphagia Psychiatry- denies depression or SI or HI Skin- fragile skin laboratory and microbiology Laboratory Tests 08/17/24 13:24 Test 08/17/24 13:24 Range/Units Serum Glucose 87 74-106 mg/dL Problem List/Assessment/Plan Problem List/Assessment/Plan # acute on chronic hypoxic respiratory failure likely due to aspiration pneumonia Gram-positive versus Gram-negative -CXR bilateral opacities of the lung ledesma from mid to lower zone -SpO2 at home was 70% even with NC O2 5 L or oxygen -continue with the Oxymizer to maintain SpO2> 90% -nebulization as prescribed -continue meropenem 1 g IV q.8h -continue vancomycin as per pharmacy recommendation -discontinued ceftriaxone and clindamycin -pending blood culture -pending sputum culture -pending MRSA screening Hypoxia: on 8 liters O2 oximizer today - #Aspiration pneumonia likely due to Gram-positive versus Gram-negative --SpO2 at home was 70% even with NC O2 5 L or oxygen, now on 8 liters O2 Oximizer -continue with the Oxymizer to maintain SpO2> 90% -nebulization as prescribed -continue meropenem 1 g IV q.8h -continue vancomycin as per pharmacy recommendation -discontinued ceftriaxone and clindamycin -pending blood culture -pending sputum culture -pending MRSA screening - #Acute exacerbation of COPD likely due to aspiration pneumonia --SpO2 at home was 70% even with NC O2 5 L or oxygen -continue with the Oxymizer to maintain SpO2> 90% -nebulization as prescribed -methylprednisolone 40 mg IV b.i.d. -continue meropenem 1 g IV q.8h -continue vancomycin as per pharmacy recommendation -discontinued ceftriaxone and clindamycin -pending blood culture -pending sputum culture -pending MRSA screening - # sepsis likely due to aspiration pneumonia Gram-positive versus Gram-negative --CXR bilateral opacities of the lung ledesma from mid to lower zone -urinalysis negative for UTI -SpO2 at home was 70% even with NC O2 5 L or oxygen -continue with the Oxymizer to maintain SpO2> 90% -nebulization as prescribed -continue meropenem 1 g IV q.8h -continue vancomycin as per pharmacy recommendation -discontinued ceftriaxone and clindamycin -pending blood culture -pending sputum culture -pending MRSA screening - # hypertension -continue hydralazine 10 mg q.6h p.r.n. 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 Patient with leukocytosis and chest x-ray bilaterally revealed opacity in the mid to lower lung ledesma. Patient on Oxymizer 8 liters/minute to maintain SpO2> 90%. Patient on IV antibiotic meropenem and vancomycin. Pending blood culture, sputum culture, MRSA screening. Patient is clinically unstable to be transferred. Goals of care/advance care planning; FULL CODE; discussed with the patient x 15 minutes PUD prophylaxis: DVT prophylaxis: Lovenox Plan discussed with Dr. Styles,,, nursing staff, patient,Spous Total time spent on patient evaluation, chart review, assessment and plan, discussion discussion >35 minutes Plan discussed with: Patient, Spouse, Other (RN) My Orders My Orders Orders - CLAUDIO TINOCO Procedure Category Date Status Time Complete Blood Count LAB 08/18/24 Logged 08:21 Date of Service: Aug 18, 2024 Billing Provider: ROSA STYLES MD Common Visit Codes: [id number] INP/OBS CARE(HIGH) Secondary Visit Codes: [id number] CARE PLAN 30 MINUTES CLAUDIO TINOCO Aug 18, 2024 09:50 ROSA STYLES MD Aug 18, 2024 10:35
[2024-08-18] MEDS ORDERED: VANCOMYCIN PER PHARMACY 0 MG IV SCH (10:15)
--- NOTE | 2024-08-18 10:20 | ECG ---
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
[2024-08-18] MEDS ORDERED: hydrALAZINE HCL 20 MG/ML VL IV PRN (10:30)
[2024-08-18 10:56] LABS: Basophils # (auto) 0.1 10 ^3/uL (0-0.2); Eosinophils # (auto) 0.2 10 ^3/uL (0-0.8); Eosinophils % (auto) 2.2 % (0.0-7.0); Hemoglobin 12.7 g/dL (13.5-17.5); Lymphocytes # (auto) 0.3 10 ^3/uL (0.4-5.4); Mean Corpuscular Hemoglobin 34.6 pg (28.0-32.0); Monocytes # (auto) 0.4 10 ^3/uL (0-1.3); Monocytes % (auto) 3.8 % (0.0-12.0); Red Blood Cells 3.67 10^6/uL (4.5-5.90); White Blood Cell 11.1 10^3/uL (4.4-10.8)
[2024-08-18 10:58] LABS: Basophils % (auto) 0.8 % (0.0-2.0); Hematocrit 37.6 % (41.0-53.0); Lymphocytes % (auto) 2.5 % (10.0-50.0); Mean Corpuscular Hgb Conc. 33.8 g/dL (32.0-36.0); Mean Corpuscular Volume 102.4 fL (80.0-100.0); Neutrophils # (auto) 10.1 10 ^3/uL (1.6-8.6); Neutrophils % (auto) 90.7 % (37.0-80.0); Platelet Count (auto) 162 10^3/uL (140-450); Red Cell Distribution Width 18.4 % (11.8-14.3)
[2024-08-18 11:20] LABS: Alanine Aminotransferase 17 U/L (7-40); Albumin 3.5 g/dL (3.2-4.8); Alkaline Phosphatase 69 U/L (46-116); Anion Gap 5 (5-15); Aspartate Aminotransferase 20 U/L (13-40); BUN/Creatinine Ratio 19.8 (10.0-20.0); Blood Urea Nitrogen 21 mg/dL (9-23); Calcium 9.2 mg/dL (8.7-10.4); Carbon Dioxide 34 mmol/L (20-31); Chloride 99 mmol/L (98-107); Glucose 125 mg/dL (74-106); Potassium 4.2 mmol/L (3.5-5.1); Sodium 138 mmol/L (136-145)
[2024-08-18 11:21] LABS: Total Protein 6.1 g/dL (5.7-8.2)
[2024-08-18] MEDS: ENOXAPARIN SOD 40 MG/0.4 ML SYRINGE SC ONE (11:33)
[2024-08-18] MEDS: VANCOMYCIN 1GM/200ML PREMIX 200 ML IV SCH (11:34)
[2024-08-18] MEDS: methylPREDNISolone SOD SUCC 40 MG/ML VL IV SCH (11:34)
[2024-08-18] MEDS ORDERED: IBUPROFEN 400 MG TAB PO PRN (13:15)
[2024-08-18] MEDS ORDERED: OXYCODONE W/ ACETAMINOPHEN 5/325MG TABLET PO PRN (14:00)
[2024-08-18] MEDS: MEROPENEM 1GM IVPB 50 ML IV SCH (14:34)
[2024-08-18] MEDS: GABAPENTIN 100 MG CAP GT SCH (14:34)
[2024-08-18] MEDS: OXYCODONE W/ ACETAMINOPHEN 5/325MG TABLET GT PRN (15:23)
[2024-08-18] MEDS: SODIUM CHLORIDE 0.9% 500 ML IV ONE (18:15)
[2024-08-18] MEDS: MIDODRINE HCL 10 MG TAB PO ONE (20:24)
[2024-08-19] VITALS (11 sets, daily range): BP systolic 84–146; BP diastolic 48–82; PULSE 58–97; RESP 0–20; TEMP 97.6–98; O2SAT 55–99
[2024-08-19 06:03] LABS: Hemoglobin 12.7 g/dL (13.5-17.5)
[2024-08-19 06:06] LABS: Hematocrit 36.5 % (41.0-53.0); Mean Corpuscular Hemoglobin 35.6 pg (28.0-32.0); Mean Corpuscular Hgb Conc. 34.7 g/dL (32.0-36.0); Mean Corpuscular Volume 102.7 fL (80.0-100.0); Platelet Count (auto) 164 10^3/uL (140-450); Red Blood Cells 3.55 10^6/uL (4.5-5.90); Red Cell Distribution Width 18.4 % (11.8-14.3); White Blood Cell 8.1 10^3/uL (4.4-10.8)
[2024-08-19] MEDS: MIDODRINE HCL 10 MG TAB PO SCH (06:06)
[2024-08-19 06:16] LABS: Anion Gap 6 (5-15); Carbon Dioxide 31 mmol/L (20-31); Chloride 99 mmol/L (98-107); Potassium 4.1 mmol/L (3.5-5.1); Sodium 136 mmol/L (136-145)
[2024-08-19 06:17] LABS: Basophils % (manual) 0 (0.0-2.0); Blast Cells 0; Eosinophils % (manual) 0 (0-7); Metamyelocytes % 0; Myelocytes % 0; Promyelocytes % 0; Reactive Lymphocytes 0
[2024-08-19 06:22] LABS: BUN/Creatinine Ratio 21.6 (10.0-20.0); Blood Urea Nitrogen 21 mg/dL (9-23); Glucose 140 mg/dL (74-106)
[2024-08-19 07:41] LABS: Band Neutrophils % (manual) 1; Lymphocytes % (manual) 3 (10.0-50.0); Monocytes % (manual) 2 (0-12)
[2024-08-19 07:42] LABS: Anisocytosis Slight; Macrocytosis Slight; Platelet Estimate Adequate
[2024-08-19] MEDS: ENOXAPARIN SOD 40 MG/0.4 ML SYRINGE SC SCH (09:03)
[2024-08-19] MEDS ORDERED: ASPirin-EC 81 mg tab PO SCH (10:00)
[2024-08-19] MEDS ORDERED: methylPREDNISolone SOD SUCC 40 MG/ML VL IV SCH (10:00)
[2024-08-19] MEDS: MIDODRINE HCL 10 MG TAB GT SCH (13:18)
--- NOTE | 2024-08-19 13:43 | DVHPNRES ---
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 Patient reported having some short of breath. Patient's reported that he was desaturating to SpO2 70 percent even after increasing home oxygen [place] O2 to 8 liter/minute. The patinet denied Chest pain, fever, acute joint pain, swelling, or dysarthria. Patient was brought to the ER by EMS. Patient's SpO2 was 87% with NC O2 4 liter/minute on arrival. Initial lab workup revealed leukocytosis WBC 12.1, chest x-ray revealed diffuse interstitial opacities seen bilaterally with more prominence in the left lung base. Patient was started on IV meropenem and vancomycin due to previous history of recent hospitalization, pneumoniae and treatment with antibiotics. We ordered sputum cultures, MRSA screen. Initial troponins were negative and BNP was normal range. Patient was admitted for further treatment and management of acute bacterial pneumonia. Patient seen and examined at bedside. Patient states that feels much better compared to admission. Patient was initially on Oxymizer at 8 L of oxygen but was downgraded to nasal cannula at 6 L of oxygen. MRSA screen of the nares came back negative and blood culture was negative as well. We will continue IV vanco and meropenem until sputum cultures are back to deescalate antibiotics. On my physical examination, patient still has minimal crackles on left lower lung and still having productive cough. We will start guaifenesin dextromethorphan for cough. We will closely monitor saturations. ROS Constitutional: Denies weight loss, fever and chills. HEENT: Denies changes in vision and hearing. Respiratory: Reports very mild shortness of breath and productive cough. Cardiovascular: Denies chest discomfort or palpitations GI: Denies abdominal pain, nausea, vomiting and diarrhea. : Denies dysuria and urinary frequency. Musculoskeletal: Denies myalgias and joint pain Skin: Denies rash and pruritus. Neurological: Denies dizziness, headache, vision or hearing problems Objective vital signs Vital Sign Date Time Temp Pulse Resp B/P (MAP) Pulse Ox O2 Delivery O2 Flow Rate FiO2 08/19/24 09:00 97.9 58 19 84/48 (60) 97 97.9 08/19/24 08:34 Oxymizer 6.0 08/19/24 08:34 N/A Total Intake and Output 08/18/24 08/18/24 08/19/24 15:00 23:00 07:00 Intake Total 450 ml 1050 ml 600 ml Output Total 700 ml 1050 ml Balance 450 ml 350 ml -450 ml medications Current Medications Medications Dose Ordered Sig/Gaurav Route Start Time Stop Time Status Last Admin Dose Admin Albuterol 2.5 mg Q4HPRN PRN NEB 08/17/24 18:45 Ipratropium [place] 0.5 mg Q4HPRN PRN NEB 08/17/24 18:45 Atorvastatin Calcium 10 mg HS PO 08/17/24 22:00 08/18/24 21:44 10 MG Levothyroxine Sodium 125 mcg QAM@0600 PO 08/18/24 06:00 08/19/24 06:06 125 MCG Meropenem 50 ml @ 17 mls/hr Q8HR IV 08/18/24 14:00 08/19/24 06:06 17 MLS/HR Vancomycin HCl 0 ml @ 0 mls/hr UD IV 08/18/24 10:15 Enoxaparin Sodium 40 mg DAILY SC 08/19/24 10:00 08/19/24 09:03 40 MG Aspirin 81 mg DAILY PO 08/19/24 10:00 Hold Gabapentin 100 mg TID GT 08/18/24 14:00 08/19/24 06:05 100 MG Methylprednisolone Sodium Succinate 40 mg BID IV 08/18/24 11:00 08/19/24 09:02 40 MG Hydralazine HCl 10 mg Q6HP PRN IV 08/18/24 10:30 Ibuprofen 400 mg Q8HP PRN PO 08/18/24 13:15 Hold Oxycodone/ Acetaminophen 1 tab Q4HP PRN GT 08/18/24 14:45 08/18/24 15:23 1 TAB Midodrine 10 mg TID@0600,1200,1800 GT 08/19/24 12:00 08/19/24 13:18 10 MG Examination Physical Examination General: Patient alert and oriented in person, place and time. Patient following commands. HEENT: Normocephalic, atraumatic, moist mucous membranes Respiratory/pulmonary: There are minimal crackles on auscultation of the left lower lung at the base, right lung sounds grossly clear. No wheezes at this time. Cardiovascular: Normal regular heart sounds S1 and S2 with no associated murmurs Abdomen: Abdomen nondistended, there is no pain to palpation in any of the abdominal quadrants, no palpable masses. Extremities: There is no peripheral edema present at the lower extremities. Peripheral Pulses: 3+ Radial (R). 3+ Radial (L). 3+ Dorsalis pedis (R). 3+ Dorsalis pedis(L) Skin: No rashes or pruritus, there is no sacral edema present at this time. Neurological: Intact cranial nerves with no focal neurologic deficits laboratory and microbiology Laboratory Tests 08/19/24 04:17 Test 08/19/24 04:17 Range/Units Serum Glucose 140 H 74-106 mg/dL Microbiology Date/Time Source Procedure Growth Status 08/18/24 11:00 Blood Blood Culture - Preliminary NO GROWTH AFTER 24 HOURS OF INCUBATION. Resulted 08/17/24 23:05 Nose MRSA Screen - Final Complete 08/17/24 21:33 Sputum Gram Stain Pending Resulted 08/17/24 21:33 Sputum Respiratory Culture - Preliminary Resulted Problem List/Assessment/Plan Problem List/Assessment/Plan Assessment/Plan Acute on chronic hypoxic respiratory failure likely due to pneumonia Gram- positive versus Gram-negative -CXR bilateral opacities of the lung ledesma from mid to lower zone -SpO2 at home was 70% even with NC O2 5 L or oxygen -currently on nasal cannula 6 L of oxygen -nebulization as prescribed -continue meropenem 1 g IV q.8h -continue vancomycin as per pharmacy recommendation -blood culture came back negative -pending sputum culture, awaiting for results to deescalate antibiotics. -MRSA screening test came back negative Possible Aspiration pneumonia -SpO2 at home was 70% even with NC O2 5 L or oxygen, now on 8 liters O2 Oximizer -currently on nasal cannula 6 L of oxygen, still not at his baseline -nebulization as prescribed -continue meropenem 1 g IV q.8h -continue vancomycin as per pharmacy recommendation -still waiting on sputum cultures results Acute COPD exacerbation likely due to aspiration pneumonia -SpO2 at home was 70% even with NC O2 5 L or oxygen -nebulization as prescribed -continue meropenem 1 g IV q.8h -continue vancomycin as per pharmacy recommendation -blood culture came back negative -pending sputum culture, awaiting for results to deescalate antibiotics. -MRSA screening test came back negative sepsis likely due to pneumonia Gram-positive versus Gram-negative -CXR bilateral opacities of the lung ledesma from mid to lower zone -urinalysis negative for UTI -SpO2 at home was 70% even with NC O2 5 L or oxygen -currently on nasal cannula 6 L of oxygen, still not at his baseline -nebulization as prescribed -continue meropenem 1 g IV q.8h -continue vancomycin as per pharmacy recommendation -blood culture came back negative -pending sputum culture, awaiting for results to deescalate antibiotics. 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 Patient usually use 4 L of oxygen at home. Patient still has minimal crackles on left lower lung associated with productive cough. Otherwise patient is stable to transfer to [place], but patient is stating that he does not want to go on want to stay in our facility. Social service consult for transferred to [place] was already placed. Goals of care discussed with the patient at bedside for >23min, FULL CODE Plan discussed with Dr. Sauer Plan discussed with: Patient Dietary Evaluation Review Comments: 1) Continue to monitor pt PO intake to meet at least 75% of meals 2) If pt appetite continues to be poor consider Ensure Enlive TID 3) If pt continues with poor intake consider EN nutrition Pivot 1.5 @ 70 ml/hr goal rate as tolerated 4) Consider TPN to meet at least 75% of estimated needs if pt refuses all other nutrition support 5) Continue current plan of care Expected Outcomes/Goals: 1) Pt appetite to improve 2) F/U in 3-5 days NEL RAMÍREZ RESIDENT Aug 19, 2024 13:43
[2024-08-19] MEDS: VANCOMYCIN 500 MG in D5W 5% 100 ML IV SCH (18:26)
[2024-08-20] VITALS (10 sets, daily range): BP systolic 89–114; BP diastolic 55–81; PULSE 54–85; RESP 16–18; TEMP 97.8–98.1; O2SAT 90–98
[2024-08-20 06:29] LABS: Basophils # (auto) 0 10 ^3/uL (0-0.2); Basophils % (auto) 0.1 % (0.0-2.0); Eosinophils # (auto) 0 10 ^3/uL (0-0.8); Hemoglobin 12.1 g/dL (13.5-17.5); Lymphocytes # (auto) 0.2 10 ^3/uL (0.4-5.4); Monocytes # (auto) 0.2 10 ^3/uL (0-1.3)
[2024-08-20 06:31] LABS: Hematocrit 35.3 % (41.0-53.0); Lymphocytes % (auto) 1.3 % (10.0-50.0); Mean Corpuscular Hemoglobin 34.9 pg (28.0-32.0); Mean Corpuscular Hgb Conc. 34.3 g/dL (32.0-36.0); Mean Corpuscular Volume 101.6 fL (80.0-100.0); Monocytes % (auto) 1.5 % (0.0-12.0); Neutrophils # (auto) 13.4 10 ^3/uL (1.6-8.6); Neutrophils % (auto) 97.1 % (37.0-80.0); Platelet Count (auto) 184 10^3/uL (140-450); Red Blood Cells 3.48 10^6/uL (4.5-5.90); Red Cell Distribution Width 18.6 % (11.8-14.3); White Blood Cell 13.8 10^3/uL (4.4-10.8)
[2024-08-20 06:45] LABS: Alanine Aminotransferase 15 U/L (7-40); Albumin 3.5 g/dL (3.2-4.8); Alkaline Phosphatase 63 U/L (46-116); Anion Gap 3 (5-15); Aspartate Aminotransferase 16 U/L (13-40); BUN/Creatinine Ratio 20.6 (10.0-20.0); Blood Urea Nitrogen 20 mg/dL (9-23); Carbon Dioxide 33 mmol/L (20-31); Chloride 99 mmol/L (98-107); Glucose 130 mg/dL (74-106); Potassium 4.3 mmol/L (3.5-5.1); Sodium 135 mmol/L (136-145)
[2024-08-20 06:46] LABS: Bilirubin, Total 0.6 mg/dL (0.2-1.0); Total Protein 5.8 g/dL (5.7-8.2)
--- NOTE | 2024-08-20 10:15 | DVHPNRES ---
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 Patient reported having some short of breath. Patient's reported that he was desaturating to SpO2 70 percent even after increasing home oxygen NC O2 to 8 liter/minute. Chest pain, fever, acute joint pain or swelling, dysarthria. Patient was brought to the ER by EMS. Patient's SpO2 was 87% with NC O2 4 liter/minute on arrival. Initial lab workup revealed leukocytosis WBC 12.1, chest x-ray revealed bilateral lung opacity the mid and lower zone. 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 Patient reports feeling some short of breath with coughing and making greenish sputum Cardiovascular- deny acute chest pain or palpitation Gastrointestinal- denies any rectal bleeding, nausea or vomiting Musculoskeletal-denies acute joint swelling or tenderness or redness Neurological- denies acute dysarthria, dysphagia, change in vision Psychiatry- denies depression or SI or HI Skin- denies acute rash or purpura Patient was seen today for clinical evaluation. Labs and chart reviewed. WBC is elevated today 13.8, yesterday it was 8.1 likely due to methylprednisolone., patient reports ongoing cough and greenish phlegm production. Denied any fever. Patient is on NC O2 5 liters/minute. Patient reported shortness of breath is getting better. Blood culture negative, MRSA negative, stain stain revealed- Many White Blood Cells Seen Many Gram Positive Cocci in pairs, Moderate Gram Negative Candido. A sputum CS revealed Klebsiella oxytoca, sensitive to levofloxacin. On auscultation Mild crackles in the bilateral lower lung field better than before. Meropenem and vancomycin and started levofloxacin 750 mg IV daily. Objective vital signs Vital Sign Date Time Temp Pulse Resp B/P (MAP) Pulse Ox O2 Delivery O2 Flow Rate FiO2 08/20/24 05:00 98.1 63 18 112/70 (84) 90 98.1 08/19/24 22:27 Oxymizer 6 N/A Total Intake and Output 08/19/24 08/19/24 08/20/24 15:00 23:00 07:00 Intake Total 50 ml 400 ml 450 ml Output Total 700 ml 2 ml Balance 50 ml -300 ml 448 ml medications Current Medications Medications Dose Ordered Sig/Gaurav Route Start Time Stop Time Status Last Admin Dose Admin Albuterol 2.5 mg Q4HPRN PRN NEB 08/17/24 18:45 Ipratropium Holiday 0.5 mg Q4HPRN PRN NEB 08/17/24 18:45 Atorvastatin Calcium 10 mg HS PO 08/17/24 22:00 08/19/24 23:11 10 MG Levothyroxine Sodium 125 mcg QAM@0600 PO 08/18/24 06:00 08/20/24 06:10 125 MCG Meropenem 50 ml @ 17 mls/hr Q8HR IV 08/18/24 14:00 08/20/24 05:10 17 MLS/HR Vancomycin HCl 0 ml @ 0 mls/hr UD IV 08/18/24 10:15 Enoxaparin Sodium 40 mg DAILY SC 08/19/24 10:00 08/19/24 09:03 40 MG Aspirin 81 mg DAILY PO 08/19/24 10:00 Hold Gabapentin 100 mg TID GT 08/18/24 14:00 08/20/24 06:10 100 MG Methylprednisolone Sodium Succinate 40 mg BID IV 08/18/24 11:00 08/19/24 23:11 40 MG Hydralazine HCl 10 mg Q6HP PRN IV 08/18/24 10:30 Ibuprofen 400 mg Q8HP PRN PO 08/18/24 13:15 Hold Oxycodone/ Acetaminophen 1 tab Q4HP PRN GT 08/18/24 14:45 08/18/24 15:23 1 TAB Midodrine 10 mg TID@0600,1200,1800 GT 08/19/24 12:00 08/20/24 06:10 10 MG Vancomycin HCl 500 mg/Dextrose 100 ml @ 200 mls/hr Q12H IV 08/19/24 18:00 08/20/24 06:10 200 MLS/HR Examination General examination- awake, alert, alert and cooperative HEENT- PEERLA, no acute nasal discharge Cardiovascular- S1-S2 audible, rate and rhythm regular, no murmur Respiratory- + bilateral lung crackles Gastrointestinal-feeding tube present, nontender, bowel sound+. Nondistended Musculoskeletal-no acute joint swelling or tenderness or redness# Lower extremity- no leg edema Neurological- cranial nerves intact, no acute dysarthria or dysphagia Psychiatry- denies depression or SI or HI Skin- fragile skin laboratory and microbiology Laboratory Tests 08/20/24 06:03 Test 08/20/24 06:03 Range/Units Serum Glucose 130 H 74-106 mg/dL Microbiology Date/Time Source Procedure Growth Status 08/18/24 11:00 Blood Blood Culture - Preliminary NO GROWTH AFTER 24 HOURS OF INCUBATION. Resulted 08/17/24 23:05 Nose MRSA Screen - Final Complete 08/17/24 21:33 Sputum Gram Stain - Final Resulted 08/17/24 21:33 Sputum Respiratory Culture - Preliminary Resulted Problem List/Assessment/Plan Problem List/Assessment/Plan Assessment/Plan Acute on chronic hypoxic respiratory failure likely due to pneumonia Gram- positive versus Gram-negative -CXR bilateral opacities of the lung ledesma from mid to lower zone -SpO2 at home was 70% even with NC O2 5 L or oxygen -currently on nasal cannula 5 L of oxygen -nebulization q.6 H standing -blood culture came back negative -MRSA negative, -Gram stain revealed-Many White Blood Cells Seen Many Gram Positive Cocci in pairs, Moderate Gram Negative Candido. - A sputum CS revealed Klebsiella oxytoca, sensitive to levofloxacin. -on 08/20/2024 discontinued. Meropenem and vancomycin based on sputum culture report - on 08/20/2024 started levofloxacin 750 mg IV daily Possible Aspiration pneumonia -SpO2 at home was 70% even with NC O2 5 L or oxygen, now on 8 liters O2 Oximizer -currently on nasal cannula 5 L of oxygen, still not at his baseline --nebulization q.6 H standing --blood culture came back negative -MRSA negative, -Gram stain revealed-Many White Blood Cells Seen Many Gram Positive Cocci in pairs, Moderate Gram Negative Candido. - A sputum CS revealed Klebsiella oxytoca, sensitive to levofloxacin. -on 08/20/2024 discontinued. Meropenem and vancomycin based on sputum culture report - on 08/20/2024 started levofloxacin 750 mg IV daily Acute COPD exacerbation likely due to aspiration pneumonia -SpO2 at home was 70% even with NC O2 5 L or oxygen -nebulization q.6h standing -blood culture came back negative -MRSA negative, -Gram stain revealed-Many White Blood Cells Seen Many Gram Positive Cocci in pairs, Moderate Gram Negative Candido. - A sputum CS revealed Klebsiella oxytoca, sensitive to levofloxacin. -on 08/20/2024 discontinued. Meropenem and vancomycin based on sputum culture report - on 08/20/2024 started levofloxacin 750 mg IV daily sepsis likely due to pneumonia Gram-positive versus Gram-negative -CXR bilateral opacities of the lung ledesma from mid to lower zone -urinalysis negative for UTI -SpO2 at home was 70% even with NC O2 5 L or oxygen -currently on nasal cannula 5 L of oxygen, still not at his baseline --nebulization q.6h standing -blood culture came back negative -MRSA negative, -Gram stain revealed-Many White Blood Cells Seen Many Gram Positive Cocci in pairs, Moderate Gram Negative Candido. - A sputum CS revealed Klebsiella oxytoca, sensitive to levofloxacin. -on 08/20/2024 discontinued. 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 Patient usually use 3 L of oxygen at home. Patient still has minimal crackles on left lower lung associated with productive cough. Otherwise patient is stable to transfer to [place], but patient is stating that he does not want to go on want to stay in our facility. Social service consult for transferred to [place] was already placed. Goals of care discussed with the patient at bedside for >23min, FULL CODE Plan discussed with Dr. Sauer Plan discussed with: Patient Plan discussed with: Patient, Spouse (RN), Other My Orders My Orders Orders - CLAUDIO TINOCO Procedure Category Date Status Time Vancomycin PHA 08/19/24 In Process 18:00 Vancomycin,Trough LAB 08/21/24 Verified 05:00 Vancomycin Per CORINNA 08/19/24 In Process Pharmacy Protoc 15:10 Dietary Evaluation Review Comments: 1) Continue to monitor pt PO intake to meet at least 75% of meals 2) If pt appetite continues to be poor consider Ensure Enlive TID 3) If pt continues with poor intake consider EN nutrition Pivot 1.5 @ 70 ml/hr goal rate as tolerated 4) Consider TPN to meet at least 75% of estimated needs if pt refuses all other nutrition support 5) Continue current plan of care Expected Outcomes/Goals: 1) Pt appetite to improve 2) F/U in 3-5 days CLAUDIO TINOCO RESIDENT Aug 20, 2024 10:15
[2024-08-20] MEDS: levoFLOXacin 750MG 150 ML IV ONE (16:37)
[2024-08-20] MEDS ORDERED: IPRATROPIUM BROM 0.5 MG/2.5ML INH SOL NEB SCH ×2 (18:00→22:00)
[2024-08-20] MEDS: ALBUTEROL SULF 2.5 MG/0.5ML(0.5%) NEB SOLN NEB SCH (18:20)
[2024-08-20] MEDS: IPRATROPIUM BROM 0.5 MG/2.5ML INH SOL NEB SCH (18:20)
[2024-08-20] MEDS: LACTULOSE 20Gm/30ML SOLN PO PRN (18:57)
[2024-08-20] MEDS ORDERED: ALBUTEROL SULF 2.5 MG/0.5ML(0.5%) NEB SOLN NEB SCH (22:00)
[2024-08-21] VITALS (12 sets, daily range): BP systolic 90–114; BP diastolic 56–74; PULSE 53–68; RESP 16–20; TEMP 36.7; O2SAT 91–99
[2024-08-21 05:10] LABS: Hemoglobin 11.6 g/dL (13.5-17.5); Mean Corpuscular Hemoglobin 34.8 pg (28.0-32.0)
[2024-08-21 05:12] LABS: Hematocrit 34.2 % (41.0-53.0); Mean Corpuscular Volume 102.6 fL (80.0-100.0); Platelet Count (auto) 188 10^3/uL (140-450); Red Blood Cells 3.33 10^6/uL (4.5-5.90); Red Cell Distribution Width 19.1 % (11.8-14.3); White Blood Cell 9.8 10^3/uL (4.4-10.8)
[2024-08-21 05:24] LABS: Basophils % (manual) 0 (0.0-2.0); Blast Cells 0; Eosinophils % (manual) 0 (0-7); Metamyelocytes % 0; Monocytes % (manual) 0 (0-12); Myelocytes % 0; Promyelocytes % 0; Reactive Lymphocytes 0
[2024-08-21 05:34] LABS: Chloride 100 mmol/L (98-107); Potassium 4.7 mmol/L (3.5-5.1); Sodium 135 mmol/L (136-145)
[2024-08-21 05:35] LABS: Anion Gap 2 (5-15); Calcium 8.9 mg/dL (8.7-10.4); Carbon Dioxide 33 mmol/L (20-31)
[2024-08-21 05:40] LABS: BUN/Creatinine Ratio 24.2 (10.0-20.0); Blood Urea Nitrogen 23 mg/dL (9-23); Glucose 133 mg/dL (74-106)
[2024-08-21 06:34] LABS: Band Neutrophils % (manual) 4; Lymphocytes % (manual) 2 (10.0-50.0)
[2024-08-21 06:35] LABS: Anisocytosis Slight; Macrocytosis Slight; Platelet Estimate Adequate
[2024-08-21] MEDS: levoFLOXacin 750MG 150 ML IV SCH (09:15)
--- NOTE | 2024-08-21 13:17 | DVHPNRES ---
Progress Note Medical Necessity Reason Pt with a Central, PICC or Fol: No Objective vital signs Vital Sign Date Time Temp Pulse Resp B/P (MAP) Pulse Ox O2 Delivery O2 Flow Rate FiO2 08/21/24 12:53 36.7 68 20 91 08/21/24 10:00 Nasal Cannula* 3 32 08/21/24 09:00 90/56 (67) Total Intake and Output 08/20/24 08/20/24 08/21/24 15:00 23:00 07:00 Intake Total 850 ml Output Total 2 ml 800 ml Balance 848 ml -800 ml medications Current Medications Medications Dose Ordered Sig/Gaurav Route Start Time Stop Time Status Last Admin Dose Admin Albuterol 2.5 mg Q4HPRN PRN NEB 08/17/24 18:45 Ipratropium Melba 0.5 mg Q4HPRN PRN NEB 08/17/24 18:45 Atorvastatin Calcium 10 mg HS PO 08/17/24 22:00 08/20/24 21:49 10 MG Levothyroxine Sodium 125 mcg QAM@0600 PO 08/18/24 06:00 08/21/24 06:02 125 MCG Enoxaparin Sodium 40 mg DAILY SC 08/19/24 10:00 08/21/24 09:14 40 MG Aspirin 81 mg DAILY PO 08/19/24 10:00 Hold Gabapentin 100 mg TID GT 08/18/24 14:00 08/21/24 05:56 100 MG Methylprednisolone Sodium Succinate 40 mg BID IV 08/18/24 11:00 08/21/24 09:15 40 MG Hydralazine HCl 10 mg Q6HP PRN IV 08/18/24 10:30 Ibuprofen 400 mg Q8HP PRN PO 08/18/24 13:15 Hold Oxycodone/ Acetaminophen 1 tab Q4HP PRN GT 08/18/24 14:45 08/18/24 15:23 1 TAB Midodrine 10 mg TID@0600,1200,1800 GT 08/19/24 12:00 08/21/24 11:49 10 MG Lactulose 30 ml BIDPRN PRN PO 08/20/24 13:15 08/20/24 18:57 30 ML Levofloxacin/ Dextrose 150 ml @ 100 mls/hr DAILY IV 08/21/24 10:00 08/21/24 09:15 100 MLS/HR Albuterol 2.5 mg Q6HWA [facility] 08/20/24 18:00 08/21/24 12:06 2.5 MG Ipratropium Melba 0.5 mg Q6HWA [facility] 08/20/24 18:00 08/21/24 12:05 0.5 MG laboratory and microbiology Laboratory Tests 08/21/24 04:24 Test 08/21/24 04:24 Range/Units Serum Glucose 133 H 74-106 mg/dL Microbiology Date/Time Source Procedure Growth Status 08/18/24 11:00 Blood Blood Culture - Preliminary NO GROWTH AFTER 72 HOURS OF INCUBATION. Resulted 08/17/24 23:05 Nose MRSA Screen - Final Complete 08/17/24 21:33 Sputum Gram Stain - Final Complete 08/17/24 21:33 Respiratory Culture - Final Klebsiella oxytoca Complete My Orders My Orders Orders - SHEKHAR MARINELLI Procedure Category Date Status Time Discharge DISCHARGE 08/21/24 Transmitted 11:55 Dietary Evaluation Review Comments: 1) Continue to monitor pt PO intake to meet at least 75% of meals 2) If pt appetite continues to be poor consider Ensure Enlive TID 3) If pt continues with poor intake consider EN nutrition Pivot 1.5 @ 70 ml/hr goal rate as tolerated 4) Consider TPN to meet at least 75% of estimated needs if pt refuses all other nutrition support 5) Continue current plan of care Expected Outcomes/Goals: 1) Pt appetite to improve 2) F/U in 3-5 days SHEKHAR MARINELLI RESIDENT Aug 21, 2024 13:17
[2024-08-21] MEDS ORDERED: MID10T GT (13:19)
[2024-08-21] MEDS ORDERED: IPR002IS NEB (13:19)
[2024-08-21] MEDS ORDERED: METH4PAK PO (13:19)
[2024-08-21] MEDS ORDERED: ALB5IS NEB (13:19)
[2024-08-21] MEDS ORDERED: LEVO500T91 PO (13:19)
--- NOTE | 2024-08-21 15:24 | DVHDSRES ---
Discharge Summary Date of Admission Resident Creating Document: CLUADIO TINOCO Aug 17, 2024 at 18:53 Date of Discharge: Aug 21, 2024 Labs/Diagnostic Data: Laboratory Results Test 08/21/24 04:24 08/20/24 06:03 08/19/24 04:17 08/17/24 23:30 White Blood Count 9.8 10^3/uL (4.4-10.8) Red Blood Count 3.33 10^6/uL (4.5-5.90) Hemoglobin 11.6 g/dL (13.5-17.5) Hematocrit 34.2 % (41.0-53.0) Mean Corpuscular Volume 102.6 fL (80.0-100.0) Mean Corpuscular Hemoglobin 34.8 pg (28.0-32.0) Mean Corpuscular Hemoglobin Concent 34.0 g/dL (32.0-36.0) Red Cell Distribution Width 19.1 % (11.8-14.3) Platelet Count 188 10^3/uL (140-450) Mean Platelet Volume 8.0 fL (6.9-10.8) Neutrophils (%) (Auto) % (37.0-80.0) Lymphocytes (%) (Auto) % (10.0-50.0) Monocytes (%) (Auto) % (0.0-12.0) Basophils (%) (Auto) % (0.0-2.0) Neutrophils # (Auto) 10 ^3/uL (1.6-8.6) Lymphocytes # (Auto) 10 ^3/uL (0.4-5.4) Monocytes # (Auto) 10 ^3/uL (0-1.3) Differential Total Cells Counted 100.0 (100) Neutrophils % (Manual) 94 (37.0-80.0) Band Neutrophils % (Manual) 4 Lymphocytes % (Manual) 2 (10.0-50.0) Monocytes % (Manual) 0 (0-12) Eosinophils % (Manual) 0 (0-7) Basophils % (Manual) 0 (0.0-2.0) Metamyelocytes % (manual) 0 Myelocytes % (Manual) 0 Promyelocytes % (Manual) 0 Blast Cells % (Manual) 0 Reactive Lymphocytes 0 Platelet Estimate Adequate Anisocytosis (manual) Slight Macrocytosis Slight Sodium Level 135 mmol/L (136-145) Potassium Level 4.7 mmol/L (3.5-5.1) Chloride Level 100 mmol/L (98-107) Carbon Dioxide Level 33 mmol/L (20-31) Anion Gap 2 (5-15) Blood Urea Nitrogen 23 mg/dL (9-23) Creatinine 0.95 mg/dL (0.700-1.30) Glomerular Filtration Rate Calc 81 mL/min (>90) BUN/Creatinine Ratio 24.2 (10.0-20.0) Serum Glucose 133 mg/dL (74-106) Calcium Level 8.9 mg/dL (8.7-10.4) Eosinophils (%) (Auto) 0.0 % (0.0-7.0) Eosinophils # (Auto) 0 10 ^3/uL (0-0.8) Basophils # (Auto) 0 10 ^3/uL (0-0.2) Nucleated Red Blood Cells 0.0 % Total Bilirubin 0.6 mg/dL (0.2-1.0) Aspartate Amino Transferase (AST) 16 U/L (13-40) Alanine Aminotransferase (ALT) 15 U/L (7-40) Alkaline Phosphatase 63 U/L (46-116) Total Protein 5.8 g/dL (5.7-8.2) Albumin 3.5 g/dL (3.2-4.8) Random Vancomycin Level 11.2 ug/mL (5-10) Urine Color Yellow (Yellow) Urine Clarity Clear (Clear) Urine pH 7.0 (5.0-9.0) Urine Specific [place] 1.014 (1.001-1.035) Urine Protein Trace (Negative) Urine Ketones Negative (Negative) Urine Blood Trace /uL (Negative) Urine Nitrite Negative (Negative) Urine Bilirubin Negative (Negative) Urine Urobilinogen Normal mg/dL (Negative) Urine Leukocyte Esterase Negative /uL (Negative) Urine RBC 12 /hpf (0 - 3) Urine WBC 1 /hpf (0 - 3) Urine Squamous Epithelial Cells Few /hpf (<5) Urine Bacteria None seen /hpf (None Seen) Urine Glucose Normal mg/dL (Normal) Test 08/17/24 17:02 08/17/24 13:24 Troponin I High Sensitivity 14 ng/L (</=54) Prothrombin Time 10.9 sec (9.3-11.8) Prothrombin Time INR 1.03 (0.9-1.15) Activated Partial Thromboplast Time 31.1 SEC (24.5-34.5) Magnesium Level 2.2 mg/dL (1.6-2.6) B-Type Natriuretic Peptide 70.75 pg/mL (0-100) Other Laboratory Tests 08/21/24 04:24 Brief Hx & Hospital Course: Patient is 78 years old male with medical history of hypertension, COPD, on home oxygen 3 liter/minute, hypothyroidism, 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 Patient reported having some short of breath. Patient's reported that he was desaturating to SpO2 70 percent even after increasing home oxygen [place] O2 to 8 liter/minute. Chest pain, fever, acute joint pain or swelling, dysarthria. Patient was brought to the ER by EMS. Patient's SpO2 was 87% with NC O2 4 liter/minute on arrival. Initial lab workup revealed leukocytosis WBC 12.1, chest x-ray revealed bilateral lung opacity the mid and lower zone. 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 Patient reports feeling some short of breath with coughing and making greenish sputum Cardiovascular- deny acute chest pain or palpitation Gastrointestinal- denies any rectal bleeding, nausea or vomiting Musculoskeletal-denies acute joint swelling or tenderness or redness Neurological- denies acute dysarthria, dysphagia, change in vision Psychiatry- denies depression or SI or HI Skin- denies acute rash or purpura Patient was seen today for clinical evaluation. Labs and chart reviewed. WBC is elevated today 13.8, yesterday it was 8.1 likely due to methylprednisolone., patient reports ongoing cough that is improving Denied any fever. Patient is on [place] O2 3 liters/minute. Patient reported shortness of breath is getting better. Blood culture negative, MRSA negative, stain stain revealed-Many White Blood Cells Seen Many Gram Positive Cocci in pairs, Moderate Gram Negative Candido. A sputum CS revealed Klebsiella oxytoca, sensitive to levofloxacin. On auscultation Mild crackles in the bilateral lower lung field better than before. Pt can be safely discharged with oral AB and inhalators. General examination- awake, alert, alert and cooperative HEENT- PEERLA, no acute nasal discharge Cardiovascular- S1-S2 audible, rate and rhythm regular, no murmur Respiratory- + bilateral lung crackles Gastrointestinal-feeding tube present, nontender, bowel sound+. Nondistended Musculoskeletal-no acute joint swelling or tenderness or redness# Lower extremity- no leg edema Neurological- cranial nerves intact, no acute dysarthria or dysphagia Psychiatry- denies depression or SI or HI Skin- fragile skin Case discussed with Dr Oliveros Time spent on care 25 min Operations or Procedures EXAM: XY CHEST PORTABLE Indication:SOB Technique: Single frontal view of the chest was obtained Comparison: XY CHEST PORTABLE on DOS: 07/28/24 FINDINGS: Lines and Tubes: None Lungs: Diffuse interstitial opacities. Pleura: No effusion. No pneumothorax. Cardiomediastinal contours: Unremarkable Bones: No acute osseous abnormality. IMPRESSION: Diffuse interstitial opacities suggestive of atypical infection or pulmonary edema. 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 Patient was counseled about treatment plan, medications, possible side effects, patientverbalized understanding. All questions were answered to the best of my ability. This discharge took greater then 30 minutes in planning, reviewing documentation, counseling the patient, and discussing with other team members." ASSESSMENT ASSESSMENT Assessment aspiration pneumnia Date of Service: Aug 21, 2024 Billing Provider: CELINE OLIVEROS MD Common Visit Codes: 66446-MBZ/OBS DISCH DAY >30min Coding Comment Comment Attending Attestation I saw and evaluated the patient. I reviewed the residents note and agree with findings and plan as documented in the residents note except as documented below. Patient with recurrent aspiration precaution, already have discussion with patient in prior admission regarding the risk eating instead of using PEG tube, patient understands that he silently aspirate and he might return to hospital for aspiration pneumonia or aspiration pneumonitis if he keeps eating per oral SHEKHAR MARINELLI RESIDENT Aug 21, 2024 15:24 CELINE OLIVEROS MD Aug 21, 2024 19:10
== END 2024-08-21 15:00 | disposition home or self-care (01) | DRG 871 ==
LOC: EDBD 12:31 → ER 12:31 → TELE 18:53 → CENTRAL 22:12
PROVIDERS: ADMIT Student in an Organized Health Care Education/Training Program; ATTEND Student in an Organized Health Care Education/Training Program
DX: A41.59 Other Gram-negative sepsis (principal); J15.69 Pneumonia due to other Gram-negative bacteria; J69.0 Pneumonitis due to inhalation of food and vomit; J15.9 Unspecified bacterial pneumonia; J96.21 Acute and chronic respiratory failure with hypoxia; J44.1 Chronic obstructive pulmonary disease with (acute) exacerbation; J44.0 Chronic obstructive pulmonary disease with (acute) lower respiratory infection; J98.4 Other disorders of lung; E03.9 Hypothyroidism, unspecified; E78.5 Hyperlipidemia, unspecified; I10 Essential (primary) hypertension; Z88.6 Allergy status to analgesic agent; Z85.89 Personal history of malignant neoplasm of other organs and systems; Z79.899 Other long term (current) drug therapy
CPT/HCPCS: 36415; 71045; 80048; 80053; 80202; 81001; 83735; 83880; 84484; 85007; 85025; 85027; 85610; 85730; 87040; 87070; 87077; 87081; 87186; 87205; 93005; 94640; G0378; J1956; J2185; J3490; J7060